=== PATIENT | male | born 1995 | race Caucasian/White ===

== ENCOUNTER 2017-10-18 23:03 | Emergency (ER) | payer OTHER ==
[2017-10-18 23:10] VITALS: TEMP 98.5
--- NOTE | 2017-10-18 23:28 | ED ---
General Adult HPI - General Chief complaint: Fall Stated complaint: Fall Time Seen by Provider: 10/18/17 23:13 Source: patient, RN notes reviewed Mode of arrival: ambulatory Limitations: no limitations - History of Present Illness Initial comments: Patient 20-year-old male denies any significant past medical history, presented to the emergency room today with a chief complaint of a fall that occurred just prior to arrival. Patient does admit that he wanted us some steps fell for landed on his nose. He also admits to some pain to the right hand. Patient denies any loss consciousness. Patient does admit that he was drinking had a few drinks. Patient denies any other injuries or complaints currently. Patient denies any recent fever, chills, shortness of breath, chest pain, back pain, abdominal pain, nausea or vomiting, numbness or tingling, dysuria or hematuria, constipation or diarrhea, or visual changes, or any other complaints. - Related Data Previous Rx's Medication Instructions Recorded Amoxicillin/Potassium Clav 1 each PO Q12HR #20 tab 10/19/17 [Augmentin 875-125 Tablet] Ibuprofen [Motrin] 600 mg PO Q6HR PRN #20 day 10/19/17 Allergies Allergy/AdvReac Type Severity Reaction Status Date / Time No Known Allergies Allergy Verified 10/18/17 23:31 Review of Systems ROS Statement: Those systems with pertinent positive or pertinent negative responses have been documented in the HPI. ROS Other: All systems not noted in ROS Statement are negative. Past Medical History Past Medical History: No Reported History History of Any Multi-Drug Resistant Organisms: None Reported Past Surgical History: No Surgical Hx Reported Past Psychological History: No Psychological Hx Reported Smoking Status: Never smoker Past Alcohol Use History: None Reported Past Drug Use History: None Reported General Exam - General Exam Comments Initial Comments: General: The patient is awake and alert, in no distress, and does not appear acutely ill. Eye: Pupils are equal, round and reactive to light, extra-ocular movements are intact. No nystagmus. There is normal conjunctiva bilaterally. No signs of icterus. Ears, nose, mouth and throat: There are moist mucous membranes and no oral lesions. No septal hematoma. There is deviation of the nose to the left. Locally tender over the nasal bridge. Mild tenderness to the inferior bones bilaterally. Neck: The neck is supple, there is no tenderness or JVD. Cardiovascular: There is a regular rate and rhythm. No murmur, rub or gallop is appreciated. Respiratory: Lungs are clear to auscultation, respirations are non-labored, breath sounds are equal. No wheezes, stridor, rales, or rhonchi. Musculoskeletal: Normal ROM. Does have tenderness over the third and fourth MCP joints and metacarpals. Strength 5/5. Sensation intact. Pulses equal bilaterally 2+. Neurological: A&O x 3. CN II-XII intact, There are no obvious motor or sensory deficits. Coordination appears grossly intact. Speech is normal. Skin: Skin is warm and dry and no rashes or lesions are noted. Psychiatric: Cooperative, appropriate mood & affect, normal judgment. Limitations: no limitations Course Vital Signs 10/18/17 23:05 Temperature 98.5 F Pulse Rate 110 H Respiratory 20 Rate Blood Pressure 125/63 O2 Sat by Pulse 98 Oximetry Medical Decision Making - Medical Decision Making Patient reexamined at this time shows no signs of distress. Is resting comfortably in the stretcher. Patient's x-ray of his right hand is negative for any evidence of acute fracture. No dislocation. Results were discussed with the patient. Patient's CT of the head and neck is negative. CT of the facial bones does show a comminuted nasal fracture. Does show some inflammatory changes. Patient no evidence of cephalohematoma. Will be given ENT to follow-up with over the next 2-5 days. She will be given antibiotic to cover for infection. Advised to ice affected area. Advised to return to emergency room for any other concerns. Disposition Clinical Impression: Fall, Nasal fracture, Hand contusion Disposition: HOME SELF-CARE Condition: Good Additional Instructions: Please continue use ice to affected area for swelling. Please use Tylenol/ ibuprofen for pain as needed. Please use antibiotic as prescribed and follow- up with ENT over the next 2-5 days. Please return here to the emergency room if any symptoms increase or worsen or for other concerns. Prescriptions: Amoxicillin/Potassium Clav [Augmentin 875-125 Tablet] 1 each PO Q12HR #20 tab Ibuprofen [Motrin] 600 mg PO Q6HR PRN #20 day PRN Reason: Pain Referrals: None,Stated [REFERRING] - 1-2 days Thor Bray MD [STAFF PHYSICIAN] - 1-2 days Time of Disposition: 00:24
--- NOTE | 2017-10-19 00:09 | CT ---
EXAMINATION TYPE: CT facial bones wo con DATE OF EXAM: 10/19/2017 COMPARISON: NONE HISTORY: fall CT DLP: [id number] body 366.50 mGycm Automated exposure control for dose reduction was used. TECHNIQUE: CT scan of the sinuses is performed without contrast, axial images are obtained, coronal r eformatted images are also reviewed. FINDINGS: There is mucosal thickening in the right maxillary sinus consistent with inflammatory disea se. There is no evidence of blowout fracture. The mandibular ring is intact. There is comminuted frac ture of the nasal bone. The maxilla appears intact. The zygomatic arches appear normal. The orbital m argins are intact. There is no evidence of retro-orbital mass. IMPRESSION: Comminuted nasal bone fracture with deviation to the right side. Right-sided maxillary si nus mucosal thickening probably due to inflammatory disease.
--- NOTE | 2017-10-19 00:11 | XR ---
EXAMINATION TYPE: XR hand complete RT DATE OF EXAM: 10/19/2017 COMPARISON: NONE HISTORY: Pain TECHNIQUE: 3 views FINDINGS: I see no fracture nor dislocation. Metacarpals appear intact. Joint spaces are normal. IMPRESSION: Negative right hand exam
--- NOTE | 2017-10-19 00:11 | CT ---
EXAMINATION TYPE: CT brain russeline isael con DATE OF EXAM: 10/19/2017 COMPARISON: NONE HISTORY: fall CT DLP: [id number] body 366.50 mGycm Automated exposure control for dose reduction was used. TECHNIQUE: CT scan of the head and cervical spine are performed without contrast. FINDINGS: Ventricles and sulci appear normal. There is no mass effect nor midline shift. There is n o sign of intracranial hemorrhage. The calvarium is intact. The cervical vertebra have normal alignment. Posterior element are intact. Facet joints are intact. S kull base is intact. There is no evidence of a fracture. IMPRESSION: Negative CT scan of the brain. Negative CT scan of the cervical spine.
[2017-10-19 00:37] VITALS: BP 155/58; PULSE 109; RESP 18
== END 2017-10-19 00:37 | disposition home or self-care (01) ==
LOC: EC 23:03
DX: S02.2XXA Fracture of nasal bones, initial encounter for closed fracture (principal); S60.221A Contusion of right hand, initial encounter; W10.9XXA Fall (on) (from) unspecified stairs and steps, initial encounter; Y92.89 Other specified places as the place of occurrence of the external cause
CPT/HCPCS: 70450; 70486; 72125; 99284